=== PATIENT | male | born 1950 | race Caucasian/White ===

== ENCOUNTER 2016-12-12 08:27 | Outpatient (CLI) | payer MEDICARE, OTHER | END 2016-12-12 23:59 | disposition home or self-care (01) | LOC: NM 08:27 | PROVIDERS: ATTEND Internal Medicine Interventional Cardiology | DX: I25.10 Atherosclerotic heart disease of native coronary artery without angina pectoris (principal); R94.39 Abnormal result of other cardiovascular function study | CPT/HCPCS: 78452; A9502 ==

== ENCOUNTER 2021-01-16 14:09 | Outpatient (CLI) | payer MEDICARE, OTHER | END 2021-01-16 23:59 | disposition home or self-care (01) | LOC: US 14:09 | PROVIDERS: ATTEND Internal Medicine Interventional Cardiology | DX: I70.1 Atherosclerosis of renal artery (principal) ==